=== PATIENT | female | born 1995 | race Caucasian/White ===

== ENCOUNTER 2017-08-16 01:59 | Emergency (ER) | payer OTHER ==
[~2017-08-16] VITALS: Ht 167.6 cm; Wt 68.9 kg
[2017-08-16 02:07] VITALS: TEMP 35; Ht 167.6 cm; Wt 68.9 kg
[2017-08-16 02:45] LABS: BUN/CREATININE RATIO 13.5 (10-20); CALCIUM 8.1 mg/dl (8.5-10.1); CREATININE 0.79 mg/dl (0.60-1.20); POTASSIUM 3.9 mmol/L (3.5-5.1)
[2017-08-16 02:59] LABS: PREG INTERNAL NEGATIVE QC NEG CLEAR BACKGROUND; PREG INTERNAL POSITIVE QC POS CONTROL LINE
[2017-08-16 03:18] LABS: BASO ABS # 0.06 K/uL (0-0.2); COMPLETE YES; EOS % 0.8 %; HEMATOCRIT 37.9 % (37-47); IG% 0.2 %; LYMPH % 32.8 %; LYMPH ABS # 1.97 K/uL (1.2-3.4); MEAN CELL VOLUME 88.3 fL (80-100); MEAN CORPUSCULAR HEMOGLOBIN 30.3 pg (25-34); MEAN CORPUSCULAR HGB CONC 34.3 g/dl (32-36); MEAN PLATELET VOLUME 10.1 fL (7.4-10.4); MONO % 4.7 %; NEUT % 60.5 %; PLATELET COUNT 198 K/uL (130-400); RED BLOOD COUNT 4.29 M/uL (4.2-5.4); WHITE BLOOD COUNT 6.01 K/uL (4.8-10.8)
[2017-08-16] MEDS ORDERED: BCPILLS PO (06:25)
[2017-08-16] MEDS ORDERED: POTASSIUM CHLORIDE 10 MEQ TABCR PO STA (06:52)
--- NOTE | 2017-08-16 07:06 | EMERGENCY ROOM VISIT NOTE ---
History Report prepared by Beti: Anisha Can Under the Supervision of: Dr. Brinda Moreira D.O. First contact with patient: 02:04 Chief Complaint: ALCOHOL OVERDOSE Stated Complaint: ALCOHOL History of Present Illness The patient is a 24 year old female who presents to the Emergency Room with complaints of an episode of alcohol overdose occurring tonight. Per EMS, the patient was found in [facility]. They report that she did not have anyone with her. They state she appeared to be covered in urine and vomit. They note they did not see her vomit till she got here. HPI is limited secondary to alcohol intoxication. Source of History: EMS History Limited By: intoxication Onset: tonight Position: other (global) Quality: other (global) Timing: other (episode) Associated Symptoms: + vomiting Review of Systems Pt denies headache, change in vision, fevers, chest pain, shortness of breath, nausea, vomiting, diarrhea, pain with urination, and melena. Limited by alcohol intoxication. Past Medical & Surgical Medical Problems: (1) No Known Active Medical Problems Family History No pertinent family history Social History Alcohol Use: occasionally Marital Status: single Housing Status: lives with roommate Occupation Status: [employer] student Current/Historical Medications Scheduled Control Pills ( Control Pills), 1 TAB PO DAILY Allergies Coded Allergies: No Known Allergies (Unverified , 08/16/17) Physical Exam Vital Signs Date Time Temp Pulse Resp B/P (MAP) Pulse Ox O2 Delivery O2 Flow Rate FiO2 08/16/17 07:25 112 16 101/58 98 08/16/17 06:45 149 16 110/84 95 Room Air 08/16/17 06:26 108 16 87/54 93 Room Air 08/16/17 06:14 128 08/16/17 04:35 69 16 87/39 98 Room Air 08/16/17 02:20 70 08/16/17 02:10 Room Air 08/16/17 02:07 35.0 100 20 101/52 95 Room Air Physical Exam GENERAL: alert, well appearing, well nourished, no distress, smell of ETOH and vomit, no obvious head trauma EYE EXAM: normal conjunctiva, PERRL and EOM's grossly intact OROPHARYNX: no exudate, no erythema, lips, buccal mucosa, and tongue normal and mucous membranes are moist NECK: supple, no nuchal rigidity, no adenopathy, non-tender, no evidence of trauma LUNGS: Clear to auscultation. Normal chest wall mechanics HEART: Mildly tachycardic but regular. no murmurs, S1 normal and S2 normal ABDOMEN: abdomen soft, non-tender, normo-active bowel sounds, no masses, no rebound or guarding. No evidence of trauma. BACK: Back is symmetrical on inspection and there is no deformity, no midline tenderness, no CVA tenderness. No midline step off. No evidence if trauma. SKIN: no rashes and no bruising UPPER EXTREMITIES: upper extremities are grossly normal. No evidence of trauma. No obvious deformities. Normal pulses. LOWER EXTREMITIES: No pitting edema. Pelvis stable. No evidence of trauma. No obvious deformities. Normal pulses. NEURO EXAM: Patient localizes pain, grimaces to pain. Medical Decision & Procedures ER Provider Diagnostic Interpretation: Radiology results have been interpreted by the radiologist and reviewed by me. CT C SPINE: No evidence acute fracture or malalignment. Mild reversal of the cervical lordosis may be positional or due to muscle spasm. No prevertebral soft tissue swelling. CT HEAD: No evidence of acute intracranial abnormality or skull fracture. Radiologist: Emmanuelle Clifton M.D. Study ready at 03:37 and initial results transmitted at 03:45. CHEST X-RAY: The results were interpreted by me. Single view decubitus. No obvious effusions. CHEST X-RAY: The results were interpreted by me. No cardiomegaly. No effusion. No wide mediastinum. No focal infiltrate. No pulmonary edema. No fracture. No pneumothorax. Laboratory Results 08/16/17 02:23 Red Blood Count 4.29, Mean Corpuscular Volume 88.3, Mean Corpuscular Hemoglobin 30.3, Mean Corpuscular Hemoglobin Concent 34.3, Mean Platelet Volume 10.1, Neutrophils (%) (Auto) 60.5, Lymphocytes (%) (Auto) 32.8, Monocytes (%) (Auto) 4.7, Eosinophils (%) (Auto) 0.8, Basophils (%) (Auto) 1.0, Neutrophils # (Auto) 3.64, Lymphocytes # (Auto) 1.97, Monocytes # (Auto) 0.28, Eosinophils # (Auto) 0.05, Basophils # (Auto) 0.06 08/16/17 02:10 Test 08/16/17 02:10 08/16/17 02:23 Anion Gap 9.0 mmol/L (3-11) Est Creatinine Clear Calc Drug Dose 21.3 ml/min Estimated GFR () 63.6 Estimated GFR (Non- 54.9 BUN/Creatinine Ratio 13.5 (10-20) Calcium Level 8.1 mg/dl (8.5-10.1) Human Chorionic Gonadotropin, Qual NEG (NEG) Ethyl Alcohol mg/dL 286.0 mg/dl (0-3) White Blood Count 6.01 K/uL (4.8-10.8) Red Blood Count 4.29 M/uL (4.2-5.4) Hemoglobin 13.0 g/dL (12.0-16.0) Hematocrit 37.9 % (37-47) Mean Corpuscular Volume 88.3 fL (80-100) Mean Corpuscular Hemoglobin 30.3 pg (25-34) Mean Corpuscular Hemoglobin Concent 34.3 g/dl (32-36) Platelet Count 198 K/uL (130-400) Mean Platelet Volume 10.1 fL (7.4-10.4) Neutrophils (%) (Auto) 60.5 % Lymphocytes (%) (Auto) 32.8 % Monocytes (%) (Auto) 4.7 % Eosinophils (%) (Auto) 0.8 % Basophils (%) (Auto) 1.0 % Neutrophils # (Auto) 3.64 K/uL (1.4-6.5) Lymphocytes # (Auto) 1.97 K/uL (1.2-3.4) Monocytes # (Auto) 0.28 K/uL (0.11-0.59) Eosinophils # (Auto) 0.05 K/uL (0-0.5) Basophils # (Auto) 0.06 K/uL (0-0.2) RDW Standard Deviation 42.4 fL (36.4-46.3) RDW Coefficient of Variation 13.1 % (11.5-14.5) Immature Granulocyte % (Auto) 0.2 % Immature Granulocyte # (Auto) 0.01 K/uL (0.00-0.02) Laboratory results per my review. ED Course 0201: The patient was evaluated in room B3A. A complete history and physical exam was performed. 0612: Upon reevaluation, the patient is feeling better. I discussed the findings and the treatment plan with the patient. She verbalizes agreement and understanding. The patient was discharged home. 0652: Ordered Potassium Chloride 40 meq PO. Medical Decision Etiologies such as alcohol intoxication, toxicologic, infection, hypoglycemia, electrolyte abnormalities, cardiac sources, intracerebral event, neurologic, as well as others were entertained. Patient improved here, repeat exams are unremarkable and upon sobriety patient reexamined and denied any complaints or injury. No abnormalities noted. Patient tearful and concerned about her level of intoxication last night. Discussed appropriate use of alcohol with the patient. Discussed symptoms to watch and return for, she verbalized understanding was agreeable with plan. I' ve a low suspicion for any additional traumatic injury. Vital signs stable. Mildly low blood pressures noted, however patient laying lateral recumbent and with a petite body habitus in the setting of alcohol intoxication and likely mild dehydration. I do not suspect bacteremia/sepsis, occult hemorrhage, or other vascular etiology. Hypothermia improved, likely due to being outside and intoxicated. Medication Reconcilliation Current Medication List: was personally reviewed by me Blood Pressure Screening Patient's blood pressure: Normal blood pressure Impression Primary Impression: Alcoholic intoxication Additional Impressions: Vomiting Hypothermia Scribe Attestation The scribe's documentation has been prepared under my direction and personally reviewed by me in its entirety. I confirm that the note above accurately reflects all work, treatment, procedures, and medical decision making performed by me. Departure Information Dispostion Home / Self-Care Forms HOME CARE DOCUMENTATION FORM, IMPORTANT VISIT INFORMATION Patient Instructions My [facility] Additional Instructions Please do not drink alcohol until you are 21 when it is legal. If you choose to drink, please drink responsibly and in a safe location. Please sip clear liquids at frequent intervals to stay well-hydrated. If you have any new or concerning symptoms, please return the emergency room. Problem Qualifiers Primary Impression: Alcoholic intoxication Complication of substance-induced condition: uncomplicated Qualified Codes: F10.920 - Alcohol use, unspecified with intoxication, uncomplicated Additional Impressions: Vomiting Vomiting type: unspecified Vomiting Intractability: non-intractable Nausea presence: with nausea Qualified Codes: R11.2 - Nausea with vomiting, unspecified Hypothermia Encounter type: initial encounter Qualified Codes: T68.XXXA - Hypothermia, initial encounter
[2017-08-16 07:25] VITALS: BP 101/58; PULSE 112; O2SAT 98
--- NOTE | 2017-08-16 07:45 | DIAGNOSTIC IMAGING REPORT ---
CT SCAN OF THE CERVICAL SPINE CLINICAL HISTORY: Intoxication. Change in mental status. Suspected trauma. COMPARISON STUDY: No priors. TECHNIQUE: CT scan of the cervical spine is performed from the skull base to the upper thoracic spine. Images are reviewed in the axial, sagittal, and coronal planes. IV contrast was not administered for this examination. A dose lowering technique was utilized adhering to the principles of ALARA. CT DOSE: 1112.12 mGy.cm FINDINGS: Skeletal structures: The skeletal structures are well mineralized. There is no evidence of fracture or subluxation involving the cervical spine. Vertebral body height and alignment are maintained. There is straightening of cervical lordosis with mild reversal centered at C4. The odontoid process and lateral masses are intact. The atlantoaxial articulation is preserved. The spinous processes appear intact. Intervertebral discs: The disc spaces are well maintained. Central canal: Widely patent. Soft tissues: The prevertebral and paraspinous soft tissues are within normal limits. Calvarium: The visualized calvarium at the skull base appears intact. Brain parenchyma: Partially visualized brain parenchyma the skull base is within normal limits. Sinuses and mastoids: The visualized paranasal sinuses are clear. The mastoid air cells are well pneumatized. Lung apices: Clear as visualized. IMPRESSION: There is no evidence of fracture or subluxation involving the cervical spine. Electronically signed by: Eyal Valenzuela M.D. 08/16/2017 7:43 AM Dictated Date/Time: 08/16/2017 7:41 AM
--- NOTE | 2017-08-16 07:47 | DIAGNOSTIC IMAGING REPORT ---
CT SCAN OF THE BRAIN WITHOUT IV CONTRAST CLINICAL HISTORY: Intoxication. Change in mental status. "Found down". COMPARISON STUDY: No priors. TECHNIQUE: Unenhanced axial CT scan of the brain is performed from the vertex to the skull base. A dose lowering technique was utilized adhering to the principles of ALARA. CT DOSE: Reported separately under the concurrently performed CT scan of the cervical spine. FINDINGS: Brain parenchyma: The brain parenchyma is normal in appearance. There is no hemorrhage, mass effect, or evidence of acute territorial ischemia by CT criteria. Heath-white matter is preserved. No extra-axial fluid collection is seen. Ventricles, sulci, cisterns: Normal in configuration. Intracranial vasculature: The visualized intracranial vasculature at the skull base is normal in appearance. Calvarium: There is no depressed calvarial fracture. Sinuses and mastoids: The visualized paranasal sinuses are clear. The mastoid air cells are well pneumatized. Orbits: The bony orbits are grossly intact. IMPRESSION: No acute intracranial abnormality. Electronically signed by: Eyal Valenzuela M.D. 08/16/2017 7:46 AM Dictated Date/Time: 08/16/2017 7:44 AM
--- NOTE | 2017-08-16 08:26 | DIAGNOSTIC IMAGING REPORT ---
SINGLE VIEW CHEST CLINICAL HISTORY: Intoxication. Vomiting. FINDINGS: 2 portable chest radiographs are performed in the right lateral decubitus position as the patient declined repositioning. No prior studies are available for comparison at the time of dictation. The examination is degraded by portable technique and patient rotation. The cardiomediastinal silhouette is unremarkable. The lungs and pleural spaces are appear clear. No large pleural effusion or pneumothorax is seen. The bony thorax is grossly intact. IMPRESSION: No acute cardiopulmonary abnormality is identified noting a suboptimally positioned examination. Electronically signed by: Eyal Valenzuela M.D. 08/16/2017 8:24 AM Dictated Date/Time: 08/16/2017 8:22 AM
--- NOTE | 2017-08-16 08:27 | DIAGNOSTIC IMAGING REPORT ---
SINGLE VIEW CHEST CLINICAL HISTORY: Intoxication. Vomiting. FINDINGS: An AP, portable, upright chest radiograph is compared to study performed earlier the same day 08/16/2017. The cardiomediastinal silhouette is unremarkable. The lungs and pleural spaces are clear. No pneumothorax is seen. The bony thorax is grossly intact. Mild thoracic scoliosis is observed. IMPRESSION: No acute cardiopulmonary abnormality. Electronically signed by: Eyal Valenzuela M.D. 08/16/2017 8:25 AM Dictated Date/Time: 08/16/2017 8:25 AM
== END 2017-08-16 07:26 | disposition home or self-care (01) ==
LOC: EDBD 01:59 → C.EDB 02:01 → EDBD 02:01 → C.EDB 07:26
DX: F10.920 Alcohol use, unspecified with intoxication, uncomplicated (principal); R11.2 Nausea with vomiting, unspecified; T68.XXXA Hypothermia, initial encounter; X58.XXXA Exposure to other specified factors, initial encounter; Z79.3 Long term (current) use of hormonal contraceptives